=== PATIENT | female | born 1985 | race Caucasian/White ===

== ENCOUNTER 2016-03-25 08:42 | Emergency (ER) | payer BC ==
[2016-03-25 09:03] VITALS: BP 124/83
--- NOTE | 2016-03-25 09:26 | UC ---
Throat Pain/Nasal Alejandro HPI - HPI Summary HPI Summary: 30 yo female with sore throat and bilat otalgia x 2 days now right eye red and matted shut no eye pain no f/c no MTZ no CP or SOB - History of Current Complaint Chief Complaint: UCGeneralIllness Stated Complaint: SORE THROAT,SWOLLEN FACE Time Seen by Provider: 03/25/16 09:12 Hx Obtained From: Patient Hx Last Menstrual Period: 06/07/13 Onset/Duration: Gradual Onset, Lasting Days Severity: Mild Pain Intensity: 4 Pain Scale Used: 0-10 Numeric Related History: Prior ENT Surgery, T & A - Epiglottits Risk Factors Epiglottis Risk Factors: Negative - Allergies/Home Medications Allergies/Adverse Reactions: Allergies Allergy/AdvReac Type Severity Reaction Status Date / Time No Known Allergies Allergy Verified 06/10/13 07:30 Home Medications: Home Medications Bromocriptine TAB* [Parlodel TAB*] 2.5 mg PO DAILY 03/25/16 [History Confirmed 03/25/16] PMH/Surg Hx/FS Hx/Imm Hx Previously Healthy: Yes - Surgical History Surgical History: Yes Surgery Procedure, Year, and Place: T&A, EYE SURGERY FOR BROWN'S SYNDROME, 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 - Family History Known Family History: Positive: Cardiac Disease, Hypertension, Diabetes - Social History Alcohol Use: None Substance Use Type: None Smoking Status (MU): Never Smoked Tobacco Review of Systems Constitutional: Negative Skin: Negative Eyes: Negative ENT: Sore Throat, Ear Ache Respiratory: Negative Cardiovascular: Negative Gastrointestinal: Negative Genitourinary: Negative Motor: Negative Neurovascular: Negative Musculoskeletal: Negative Neurological: Negative Psychological: Negative All Other Systems Reviewed And Are Negative: Yes Physical Exam Triage Information Reviewed: Yes Appearance: Well-Appearing, No Pain Distress, Well-Nourished Vital Signs: Initial Vital Signs Temp 98.1 F 03/25/16 08:50 Pulse 77 03/25/16 08:50 Resp 16 03/25/16 08:50 BP 124/83 03/25/16 08:50 Pulse Ox 100 03/25/16 08:50 Eyes: Positive: Conjunctiva Inflamed, Discharge - right ENT: Positive: Hearing grossly normal, Pharyngeal erythema, TMs normal. Negative: Tonsillar swelling, Tonsillar exudate, Trismus, Muffled/hoarse voice Dental: Negative: Dental Fracture @, Abscess @ Neck: Positive: Supple, Enlarged Nodes @ - tender ant cervical nodes Respiratory: Positive: Lungs clear, Normal breath sounds, No respiratory distress, No accessory muscle use Cardiovascular: Positive: RRR, No Murmur. Negative: Tachycardia, Bradycardia Musculoskeletal: Positive: ROM Intact, No Edema Neurological: Positive: Alert Psychological Exam: Normal Skin Exam: Normal Throat Pain/Nasal Course/Dx - Differential Dx/Diagnosis Provider Diagnoses: pharyngitis. conjunctivitis Discharge - Discharge Plan Condition: Stable Disposition: HOME Prescriptions: Amoxicillin (*) 875 mg PO BID #20 tab Polymyx/Trimethoprim OPTH* [Polytrim OPHTH*] 1 - 2 drop RIGHT EYE QID #1 btl Patient Education Materials: Pharyngitis (ED), Conjunctivitis (ED) Referrals: Ofelia Oconnor MD [Primary Care Provider] - 4 Days (if not better) Additional Instructions: recheck for new or worsening symptoms
== END 2016-03-25 09:29 | disposition home or self-care (01) ==
LOC: UCCORT 08:42
DX: J02.9 Acute pharyngitis, unspecified (principal); H10.31 Unspecified acute conjunctivitis, right eye
CPT/HCPCS: 99212; G0463

== ENCOUNTER 2016-10-03 09:17 | Emergency (ER) | payer BC ==
--- NOTE | 2016-10-03 09:24 | UC ---
Throat Pain/Nasal Alejandro HPI - HPI Summary HPI Summary: 31 year old presents with complains of sore throat/right ear pain/fever/chills. 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 removed-2016 - Family History Known Family History: Positive: Cardiac Disease, Hypertension, Diabetes - Social History Alcohol Use: None Substance Use Type: None Smoking Status (MU): Never Smoked Tobacco Review of Systems Constitutional: Negative Skin: Negative Eyes: Negative ENT: Sore Throat, Ear Ache, Nasal Discharge, Sinus Congestion, Sinus Pain/ Tenderness Respiratory: Negative Cardiovascular: Negative Gastrointestinal: Negative Genitourinary: Negative Motor: Negative Neurovascular: Negative Musculoskeletal: Negative Neurological: Negative Psychological: Negative All Other Systems Reviewed And Are Negative: Yes Physical Exam Triage Information Reviewed: Yes Eye Exam: Normal ENT: Positive: Pharyngeal erythema, Nasal congestion, Nasal drainage Dental Exam: Normal Neck exam: Normal Neck: Positive: 1 Respiratory Exam: Normal Cardiovascular Exam: Normal Abdominal Exam: Normal Musculoskeletal Exam: Normal Neurological Exam: Normal Psychological Exam: Normal Skin Exam: Normal Throat Pain/Nasal Course/Dx - Differential Dx/Diagnosis Provider Diagnoses: sinusitis Discharge - Discharge Plan Condition: Stable Disposition: HOME Prescriptions: Amoxicillin/Clavulanate TAB* [Augmentin TAB 875*] 875 mg PO BID #20 tab Magic M W2 Reed/Maal/Nyst/Lido* 15 ml SWISH SPIT QID #120 ml Methylprednisolone [Medrol Dosepak 4 MG*] 4 mg PO .SEE [place] INSTRUCTION #21 tab Neomyc/Polym/HC 1% OTIC SUSP* [Cortisporin Otic Susp 1%*] 4 drop RIGHT EAR QID # 1 btl Patient Education Materials: Pharyngitis (ED), Earache (ED), Sinusitis (ED) Referrals: No Primary Care Phys,NOPCP [Medical Doctor] -
[2016-10-03 09:56] VITALS: BP 118/76
== END 2016-10-03 10:06 | disposition home or self-care (01) ==
LOC: UCCORT 09:17
DX: J32.9 Chronic sinusitis, unspecified (principal)
CPT/HCPCS: 87651; 99212; G0463

== ENCOUNTER 2018-03-10 13:30 | Emergency (ER) | payer BC ==
--- NOTE | 2018-03-10 13:46 | ED ---
- HPI Summary HPI Summary: A 32 y/o F who is 33 weeks presents to ED with c/o n/v onset 0200. This is her first . Associated sx: abd pain lasting approx 20 minutes described as a "elizabeth horse" in her stomach. Pt denies recent illness. Her water has not broken. - History of Current Complaint Chief Complaint: EDAbdPain Stated Complaint: VOMITING,33 WEEKS PREG Time Seen by Provider: 03/10/18 13:32 Hx Obtained From: Patient Onset/Duration: Started Hours Ago, Atraumatic, Still Present Severity: Moderate Current Severity: Moderate Pain Intensity: 5 Location of Pain: Diffuse Character: Other: - "elizabeth horse" Associated Signs and Symptoms: Positive: Nausea, Vomiting, Other: - abd pain. Negative: Vaginal Bleeding or Discharge - Assessment Hx Now: No - Allergies/Home Medications Allergies/Adverse Reactions: Allergies Allergy/AdvReac Type Severity Reaction Status Date / Time No Known Allergies Allergy Verified 03/10/18 13:55 PMH/Surg Hx/FS Hx/Imm Hx Previously Healthy: Yes Musculoskeletal History: Reports: Hx Back Problems - chronic back pain, Other Musculoskeletal History - chronic neck pain Opthamlomology History: Denies: Hx Legally Blind EENT History: Denies: Hx Deafness Neurological History: Denies: Hx Dementia, Other Neuro Impairments/Disorders - DENIES INJURY - Surgical History Surgery Procedure, Year, and Place: T&A, EYE SURGERY FOR BROWN'S SYNDROME, 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 Negative: discharge - water has not broken All Other Systems Reviewed And Are Negative: Yes Physical Exam - Summary Physical Exam Summary: Appearance: The patient is well-nourished in no acute distress and in no acute pain. Skin: The skin is warm and dry and skin color reflects adequate perfusion. HEENT: The head is normocephalic and atraumatic. The pupils are equal and reactive. The conjunctivae are clear and without drainage. Nares are patent and without drainage. Mouth reveals moist mucous membranes and the throat is without erythema and exudate. The external ears are intact. The ear canals are patent and without drainage. The tympanic membranes are intact. Neck: the neck is supple with full range of motion and non-tender. There are no carotid bruits. There is no neck vein distension. Respiratory: Chest is non-tender. Lungs are clear to auscultation and breath sounds are symmetrical and equal. Cardiovascular: Heart is regular rate and rhythm. There is no murmur or rub auscultated. There is no peripheral edema and pulses are symmetrical and equal. Abdomen: The abdomen is gravid, soft and non-tender. There are normal bowel sounds heard in all four quadrants and there is no organomegaly palpated. Musculoskeletal: There is no back tenderness noted. Extremities are non-tender with full range of motion. There is good capillary refill. There is no peripheral edema or calf tenderness elicited. Neurological: Patient is alert and oriented to person, place and time. The patient has symmetrical motor strength in all four extremities. Cranial nerves are grossly intact. Deep tendon reflexes are symmetrical and equal in all four extremities. Psychiatric: The patient has an appropriate affect and does not exhibit any anxiety or depression. - Physical Exam Triage Information Reviewed: Yes Vital Signs Reviewed: Yes Diagnostics - Vital Signs Vital Signs Temp Pulse Resp BP Pulse Ox 03/10/18 13:36 98.1 F 102 24 143/95 98 - Laboratory Result Diagrams: 03/10/18 14:26 03/10/18 14:26 Lab Statement: Any lab studies that have been ordered have been reviewed, and results considered in the medical decision making process. Re-Evaluation - Re-Evaluation 1 Re-Evaluation Time: 17:38 Change: Improved Comment: Discussing results with pt. Course/Dx - Course Course Of Treatment: Ms. South presented at 33 weeks' having vomited for multiple hours and then developed some epigastric pain which she describes as a charley horse. Her vitals were stable here and she was nontoxic in appearance. Her abdomen was gravid but soft. I will and he came down and put her on a monitor and didn't detect any contractions and had good activity. She was given Zofran and Protonix here in the department and did improve some. She was also given IV fluids. I gave her some sucralfate and recommended she follow up with [facility]. - Diagnoses Provider Diagnoses: GERD (gastroesophageal reflux disease), Vomiting Discharge - Sign-Out/Discharge Documenting (check all that apply): Patient Departure - DC - Discharge Plan Condition: Stable Disposition: HOME Patient Education Materials: Nausea and Vomiting in (ED), Gastroesophageal Reflux Disease (ED) Referrals: Ofelia Oconnor MD [Primary Care Provider] - Additional Instructions: Follow up with your [facility] on 03/12/18. Please return to the ED if you experience new or worsening symptoms. Follow up with your primary care provider in 2-3 days. - Billing Disposition and Condition Condition: STABLE Disposition: Home - Attestation Statements Document Initiated by Shyam: Yes Documenting Scribe: Navin Fish Provider For Whom Shyam is Documenting (Include Credential): Dr. Marko Gonzalez MD Scribe Attestation: INavin scribed for Dr. Marko Gonzalez MD on 03/10/18 at 1817. Scribe Documentation Reviewed: Yes Provider Attestation: The documentation as recorded by the Navin arreola accurately reflects the service I personally performed and the decisions made by me, Dr. Marko Gonzalez MD Status of Scribe Document: Viewed
[2018-03-10] MEDS ORDERED: NS 0.9% 1000 ML* 1,000 ML IV ONE (13:49)
[2018-03-10] MEDS ORDERED: Ondansetron INJ* 2 MG/ML VIAL IV ONE (13:56)
[2018-03-10] MEDS ORDERED: Ondansetron INJ* 2 MG/ML VIAL ONE (13:57)
[2018-03-10 14:36] LABS: ABS Basophils 0.1 10^3/ul (0-0.2); ABS Eosinophils 0.1 10^3/ul (0-0.6); ABS Lymphocytes 1.2 10^3/ul (1.0-4.8); ABS Monocytes 0.5 10^3/ul (0-0.8); ABS Neutrophils 12.2 10^3/ul (1.5-7.7); ABS Nucleated RBC 0 10^3/ul; Eosinophil % 0.4 %; Hematocrit 39 % (35-47); Hemoglobin 12.7 g/dl (12.0-16.0); Lymphocyte % 8.5 %; Mean Corpuscular HGB Conc 32 g/dl (31-36); Mean Corpuscular Hemoglobin 27 pg (27-31); Mean Corpuscular Volume 82 fL (80-97); Mean Platelet Volume 8.8 fL (7.4-10.4); Nucleated Red Blood Cells % 0.1; Platelet Count 205 10^3/ul (150-450); Red Blood Count 4.79 10^6/ul (4.00-5.40); Red Cell Distribution Width 14 % (10.5-15)
[2018-03-10 14:54] LABS: Albumin 3.2 g/dL (3.2-5.2); Albumin/Globulin Ratio 1.2 (1-3); BUN/Creatinine Ratio 12.5 (8-20); Calcium 8.4 mg/dL (8.6-10.3); EGFR Non-African American 127.1 (>60); Globulin 2.6 g/dL (2-4); Potassium 3.9 mmol/L (3.5-5.0); Total Bilirubin 0.5 mg/dL (0.2-1.0); Total Protein 5.8 g/dL (6.4-8.9)
[2018-03-10] MEDS ORDERED: Pantoprazole IV* 40 MG IV ONE (14:54)
[2018-03-10 15:56] LABS: Urine Appearance Cloudy; Urine Bacteria 1+ (Absent); Urine Bilirubin Negative (Negative); Urine Blood Negative (Negative); Urine Color Yellow; Urine Glucose Negative (Negative); Urine Ketones 2+ (Negative); Urine Nitrite Negative (Negative); Urine Protein 1+(30 mg/dL) (Negative); Urine Red Blood Cell 1+(3-5/hpf) (Absent); Urine Specific Gravity 1.024 (1.010-1.030); Urine Urobilinogen Negative (Negative); Urine White Blood Cell 2+(11-20/hpf) (Absent)
[2018-03-10] MEDS ORDERED: Sucralfate TAB* 1 GM PO ONE (17:39)
[2018-03-10 18:11] VITALS: BP 125/88
== END 2018-03-10 18:12 | disposition home or self-care (01) ==
LOC: ED 13:30
DX: O21.9 Vomiting of pregnancy, unspecified (principal); K21.9 Gastro-esophageal reflux disease without esophagitis; Z3A.33 33 weeks gestation of pregnancy; R10.9 Unspecified abdominal pain
CPT/HCPCS: 36415; 80053; 81003; 81015; 83605; 85025; 87086; 96361; 96374; 96375; 96376; 99282; A9270-GY; J2405

== ENCOUNTER 2018-04-26 21:33 | Inpatient (IN) | payer BC ==
[2018-04-26] MEDS ORDERED: Lactated Ringers 1000 ML Bag* 1,000 ML IV ONE (22:05)
[2018-04-26] MEDS ORDERED: Buffered Lidocaine 1% SYRIN* 1 ML/SYRINGE INTRADERM ONE (22:05)
--- NOTE | 2018-04-26 22:25 | HP ---
General Information - Reason for Visit SROM, labor - General Information Maternal Age: 32 Grav: 1 Para: 0 SAB: 0 IEA: 0 Estimated Due Date: 04/25/18 Determined By: LMP Gestational Age in Weeks/Days: 40w 1 d Maternal Blood Type and Rh: O Positive - Results this Serology/RPR Result: Non-Reactive Rubella Result: Immune HBsAg Result: Negative HIV Result: Negative GBS Culture Result: Positive Past Medical History Past Medical History Comment: Pituitary prolactinoma Migraine Past Surgical History Comment: prolactinoma removal 07/2015 Tonsillectomy/adenoidectomy Pertinent Family History: See Records - Antepartal Records Antepartal Records: Reviewed, Uncomplicated Review of Systems Constitutional: Comfortable CV Complaint: No Respiratory: Shortness of Breath: No Gastrointestinal: Nausea, Soft Stool Genitourinary: Leaking Fluid Musculoskeletal: Back Pain Neurological: No Headache, No Visual Changes Movement: Normal Exam Allergies/Adverse Reactions: Allergies No Known Allergies Allergy (Verified 04/24/18 11:27) - Measurements Height: 5 ft 4 in Weight: 228 lb Weight in lbs: 228.301799 Body Mass Index (BMI): 39.1 Pre- Weight: 205 lb Weight Gained This : 23 lbs and 0 ozs - Exam Breast: - - soft, no masses Extremities: No Edema Heart: Normal Rhythm/Heart Sounds HEENT: No Significant Findings Lungs: Clear Bilaterally Reflexes: DTR 2+ Thyroid: No Thyromegaly - Ultrasound/Biophysical Profile Ultrasound Status: Not Done Targeted Exam Findings Estimated Weight: 9.5 lbs Cervical Exam: 4cm Effacement: 80% Presenting Part: Vertex Membrane Status: AROM - 2nd layer at 2215--mec stained Amniotic Fluid Evaluation: Gross Rupture EFM Findings - External Monitor Findings Baseline Heart Rate: 130 External Monitor Findings: Accelerations Present, No Pattern of Variable or Late Decelerations, Variability Moderate, Baseline Stable External Monitor Findings Comment: category 1 Contractions: Irregular, Mild, 45-90 Seconds Contraction Frequency: every 3-6 min Assessment/Plan - Assessment Primip at 40 wks 1 day, early labor, SROM - Obstetrical Risk Factors Obstetrical Risk Factors: GBS Positive - Plan Plan: Admit - Anticipate Vaginal Delivery - Date/Time of Admission Date of Admission: 04/26/18 Time of Admission: 22:15
[2018-04-26] MEDS ORDERED: Penicillin G Potassium IV* 5,000,000 UNITS in NS 0.9% 100 ML* 100 ML IVPB ONE (22:30)
[2018-04-26] MEDS ORDERED: Lactated Ringers 1000 ML Bag* 1,000 ML IV SCH (23:00)
[2018-04-26 23:13] LABS: ABS Basophils 0.1 10^3/ul (0-0.2); ABS Eosinophils 0.1 10^3/ul (0-0.6); ABS Lymphocytes 3.8 10^3/ul (1.0-4.8); ABS Monocytes 0.9 10^3/ul (0-0.8); ABS Neutrophils 9.8 10^3/ul (1.5-7.7); ABS Nucleated RBC 0 10^3/ul; Eosinophil % 0.9 %; Hematocrit 43 % (35-47); Mean Corpuscular HGB Conc 32 g/dl (31-36); Mean Corpuscular Hemoglobin 26 pg (27-31); Mean Corpuscular Volume 79 fL (80-97); Mean Platelet Volume 8.9 fL (7.4-10.4); Nucleated Red Blood Cells % 0; Platelet Count 256 10^3/ul (150-450); Red Blood Count 5.45 10^6/ul (4.00-5.40); Red Cell Distribution Width 15 % (10.5-15); White Blood Count 14.7 10^3/ul (3.5-10.8)
[2018-04-26] MEDS ORDERED: fentaNYL* 50 MCG/ML 2 ML VIAL (100 MCG VIAL) ONE (23:41)
[2018-04-26] MEDS ORDERED: Bupivacaine 0.25% SDV PF* 10 ML VIAL INJ ONE (23:41)
--- NOTE | 2018-04-26 23:42 | PN ---
Progress Note - Progress Note Date of Service: 04/26/18 Note: pt wildly uncomfortable, out of control, poor pain tolerance Cervix: 5 cm/90% Will get epidural
[2018-04-26] MEDS ORDERED: OBEPIDURAL* 250 ML EPIDURAL ONE (23:44)
[2018-04-27] MEDS ORDERED: Phenylephrine IV* 40 MCG/ML 10 ML SYRINGE IV PUSH PRN ×2 (00:55)
[2018-04-27] MEDS ORDERED: Famotidine TAB* 20 MG PO PRN (00:55)
[2018-04-27] MEDS ORDERED: EPHEDrine (Pressors)* 50 MG/ML VIAL IV PUSH PRN ×2 (00:55)
[2018-04-27] MEDS ORDERED: Lactated Ringers 1000 ML Bag* 500 ML IV PRN ×2 (00:55)
[2018-04-27] MEDS ORDERED: Hetastarch 6% in NS* 200 ML IV PRN (00:55)
[2018-04-27] MEDS ORDERED: Sodium Citrate/Citric Acid* 15 ML UDC PO PRN (00:55)
[2018-04-27] MEDS ORDERED: Lactated Ringers 1000 ML Bag* 1,000 ML IV ONE (00:55)
[2018-04-27] MEDS ORDERED: Lactated Ringers 1000 ML Bag* 1,000 ML IV SCH ×3 (01:00→12:00)
[2018-04-27] MEDS ORDERED: OBEPIDURAL* 250 ML EPIDURAL SCH (01:00)
--- NOTE | 2018-04-27 01:11 | PN ---
Progress Note - Progress Note Date of Service: 04/27/18 Note: starting to get more comfortable but still with poor tolerance Will order lidocaine jelly for uretheral discomfort from catheter Feeling pressure Cervix: 6 cm/80%, vtx -2
[2018-04-27] MEDS ORDERED: Lidocaine 2% JELLY* 6 ML JELLY TOPICAL ONE (01:12)
[2018-04-27] MEDS ORDERED: Midazolam* 1 MG/ML 2 ML VIAL (2 MG) ONE (02:16)
[2018-04-27] MEDS ORDERED: fentaNYL* 50 MCG/ML 2 ML VIAL (100 MCG VIAL) ONE (02:16)
[2018-04-27] MEDS ORDERED: ceFOXitin 2 GM IVPREMIX* 2 GM/50 ML BAG ONE (02:17)
[2018-04-27] MEDS ORDERED: Famotidine IV* 10 MG/ML 2 ML (20 mg) ONE (02:23)
[2018-04-27] MEDS ORDERED: OXYTOCIN* 10 UNITS/ML 1 ML VIAL ONE (02:23)
[2018-04-27] MEDS ORDERED: Succinylcholine* 20 MG/ML 10 ML VIAL ONE (02:23)
[2018-04-27] MEDS ORDERED: Lidocaine 2% PF * 5 ML VIAL ONE (02:23)
[2018-04-27] MEDS ORDERED: Propofol* 10 MG/ML 20 ML BTL ONE (02:23)
[2018-04-27] MEDS ORDERED: Ondansetron INJ* 2 MG/ML VIAL ONE (02:54)
[2018-04-27] MEDS ORDERED: Naloxone* 0.4 MG/ML 1 ML VIAL IV PRN ×2 (02:55→03:00)
[2018-04-27] MEDS ORDERED: fentaNYL* 50 MCG/ML 2 ML VIAL (100 MCG VIAL) IV PRN (02:55)
[2018-04-27] MEDS ORDERED: Morphine PF AMP (0.5MG/ML)* 5 MG/10 ML AMP ONE (02:57)
[2018-04-27] MEDS ORDERED: DiMENhydriNATE IV* 50 MG/ML VIAL IV PUSH PRN (03:00)
[2018-04-27] MEDS ORDERED: PROCHLORPERAZINE INJ 5 MG/ML 2 ML VIAL IV PRN (03:00)
[2018-04-27] MEDS ORDERED: HYDROcodone/ACETAMIN 5-325 MG* 1 TAB PO PRN ×2 (03:00)
[2018-04-27] MEDS ORDERED: diPHENhydraMINE IV* 50 MG/ML 1 ml VIAL (BENADRYL) IV PRN (03:00)
[2018-04-27] MEDS ORDERED: Ondansetron INJ* 2 MG/ML VIAL IV PRN (03:00)
[2018-04-27] MEDS ORDERED: Nalbuphine* 10 MG/ML 1 ML VIAL IV PRN (03:00)
[2018-04-27] MEDS ORDERED: Ketorolac INJ* 30 MG/ML 1 ML VIAL ONE (03:06)
[2018-04-27] MEDS ORDERED: Witch Hazel PAD* JAR TOPICAL PRN (03:46)
[2018-04-27] MEDS ORDERED: Glycerin ADULT SUPP PR PRN (03:46)
[2018-04-27] MEDS ORDERED: Dibucaine 1% 28.35 GM TUBE PR PRN (03:46)
[2018-04-27] MEDS ORDERED: Oxytocin in LR* 20 UNITS/1,000 ML BAG IVPB SCH (04:00)
[2018-04-27] MEDS ORDERED: Lidocaine 1%* 5 ML VIAL ONE (05:54)
[2018-04-27] MEDS: Ketorolac INJ* 30 MG/ML 1 ML VIAL IV PRN ×3 (09:29→23:48)
--- NOTE | 2018-04-27 09:57 | OP ---
DATE OF OPERATION: 04/27/18 - ROOM #103 DATE OF : 89 SURGEON: Amber Patino MD. MANAGER SEARCH: Gisela Still CNM. ANESTHESIOLOGIST: Dr. Gill. ANESTHESIA: General. PRE-OP DIAGNOSES: Intrauterine , 40-2/7 weeks, bradycardia remote from delivery. POST-OP DIAGNOSES: OPERATIVE PROCEDURE: Primary low-transverse section. ESTIMATED BLOOD LOSS: 700 cc. URINE OUTPUT: 300 cc of concentrated yellow urine. IV FLUIDS: 2000 cc of crystalloid. FINDINGS: Revealed a vertex male with Apgars 9 at one minute and 9 at five minutes. Weight, 8 pounds 6 ounces. Cord tightly wrapped around leg x2. Normal-appearing tubes and ovaries bilaterally. Normal appearing placenta, three-vessel cord, manually extracted and intact. Normal uterine cavity without retained membranes or placental tissue. COMPLICATIONS: None apparent. DISPOSITION: Stable to recovery room. DESCRIPTION OF PROCEDURE: The patient was placed in dorsal lithotomy position and the abdomen was prepped and draped prior to undergoing general endotracheal anesthesia. After prepping and draping, the patient was identified with universal protocol. The general endotracheal anesthesia was then carried out. An incision was made in the skin 2 fingerbreadths above the pubic symphysis. This was carried down through to the fascia. Fascia was scored in the midline, extended laterally and superiorly using Angeles scissors and superiorly and inferiorly with blunt and sharp dissection. The peritoneum was then entered bluntly. Bladder blade was inserted. Lower uterine segment was identified and tented up with an Allis. Incision was made with scalpel. This was extended bluntly. Meconium staining was noted on the baby. The baby was delivered LOT, anterior, posterior shoulder delivered. Tight nuchal cord was noted around the leg with delivery of the baby. The cord was clamped and cut and the was handed off to the awaiting bankruptcy manager. Appropriate cord blood was obtained. The placenta was then manually extracted and noted to be intact three-vessel cord. There was an extension noted in the lower uterine segment to the left. This was clamped with broad Allis as the uterine cavity was explored free of any membranes or placental tissue. The incision was then reapproximated, the first layer with 0 Vicryl running locked, the second layer with 0 Vicryl running imbricated. There was a small area on the left lateral extension of the venous oozing. This was clamped with right angles and suture ligated using a 2-0 Vicryl in a Flako'd fashion. Tubes and ovaries were palpated and looked at and noted to have a normal appearance. The uterus was returned intraabdominally. Colic gutters were lavaged. The hysterotomy site and extension were noted to be hemostatic. The peritoneum was then clamped with Kacie's and the peritoneum was then reapproximated using 3-0 Vicryl in a running fashion. Subfascial area lavaged. Hemostasis was assured and the fascia itself was reapproximated using 0 Vicryl x2 in a running fashion. Subcu was lavaged and reapproximated using 2-0 Vicryl in an interrupted fashion. The skin was then reapproximated using 4-0 Monocryl in a subcuticular fashion. Mastisol and Steri-Strips were applied. All sponge, instrument, and blade counts were correct throughout the case. The patient tolerated the procedure well. Because the initial count could not be done because of the crash nature of the C- section AP and lateral flap plate was obtained of the abdomen confirming no evidence of instruments or sponges in the abdominal cavity. The patient was then extubated and taken to recovery room in stable condition. [id number]/[facility] #: [id number] KARUNA
[2018-04-27] MEDS: Simethicone TAB* 80 MG TAB.CHEW PO SCH ×4 (11:00→21:06)
[2018-04-27] MEDS: Docusate CAP* 100 MG PO SCH (14:04)
[2018-04-27] MEDS: Acetaminophen TAB* 325 MG PO SCH ×3 (14:37→15:28)
[2018-04-27] MEDS ORDERED: oxyCODONE/Acetamin 5/325 MG* TAB PO PRN (18:59)
[2018-04-27] MEDS: Acetaminophen TAB* 325 MG PO PRN (21:06)
[2018-04-28] MEDS: Docusate CAP* 100 MG PO SCH ×4 (07:25→21:49)
[2018-04-28] MEDS: Acetaminophen TAB* 325 MG PO SCH (07:26)
[2018-04-28] MEDS: Penicillin G Potassium IV* 2,500,000 UNITS in NS 0.9% 100 ML* 100 ML IVPB SCH ×3 (07:26→07:29)
[2018-04-28] MEDS: Ibuprofen TAB* 600 MG PO PRN ×3 (07:41→19:58)
[2018-04-28] MEDS: Acetaminophen TAB* 325 MG PO PRN (07:41)
[2018-04-28 07:43] LABS: ABS Basophils 0.1 10^3/ul (0-0.2); ABS Eosinophils 0.1 10^3/ul (0-0.6); ABS Lymphocytes 2.9 10^3/ul (1.0-4.8); ABS Monocytes 0.7 10^3/ul (0-0.8); ABS Nucleated RBC 0 10^3/ul; Eosinophil % 0.6 %; Hematocrit 30 % (35-47); Lymphocyte % 20.7 %; Mean Corpuscular HGB Conc 33 g/dl (31-36); Mean Corpuscular Hemoglobin 26 pg (27-31); Mean Corpuscular Volume 79 fL (80-97); Mean Platelet Volume 8.6 fL (7.4-10.4); Nucleated Red Blood Cells % 0; Platelet Count 254 10^3/ul (150-450); Red Blood Count 3.79 10^6/ul (4.00-5.40); Red Cell Distribution Width 15 % (10.5-15); White Blood Count 13.8 10^3/ul (3.5-10.8)
[2018-04-28] MEDS ORDERED: Ferrous Gluconate TAB* 324 MG TAB PO SCH (09:00)
[2018-04-28] MEDS: Simethicone TAB* 80 MG TAB.CHEW PO SCH ×4 (10:17→21:55)
[2018-04-28] MEDS ORDERED: Tetan/Diph/Pertus SYR(Tdap)* 0.5 ML SYR(BOOSTRIX) use SYR IM ONE (12:14)
[2018-04-28] MEDS: oxyCODONE/Acetamin 5/325 MG* TAB PO PRN ×3 (12:54→21:50)
[2018-04-29] MEDS: Ibuprofen TAB* 600 MG PO PRN ×4 (02:57→21:30)
[2018-04-29] MEDS: oxyCODONE/Acetamin 5/325 MG* TAB PO PRN ×3 (02:58→21:30)
[2018-04-29] MEDS: Simethicone TAB* 80 MG TAB.CHEW PO SCH ×4 (08:58→21:17)
[2018-04-29] MEDS: Docusate CAP* 100 MG PO SCH ×3 (08:58→21:01)
[2018-04-30] MEDS: Ibuprofen TAB* 600 MG PO PRN ×2 (04:29→10:34)
[2018-04-30 08:24] VITALS: BP 129/84
[2018-04-30] MEDS: Simethicone TAB* 80 MG TAB.CHEW PO SCH (08:31)
[2018-04-30] MEDS: Docusate CAP* 100 MG PO SCH (08:31)
== END 2018-04-30 11:03 | disposition home or self-care (01) | DRG 540 ==
LOC: MCHOBOUT 21:33 → MCHOB 22:08
PROVIDERS: ADMIT Midwife; ATTEND Obstetrics & Gynecology
PROC: 10907ZC Drainage of Amniotic Fluid, Therapeutic from Products of Conception, Via Natural or Artificial Opening (ICD-10-PCS; 2018-04-27)
PROC: 10D00Z1 Extraction of Products of Conception, Low, Open Approach (ICD-10-PCS; principal; 2018-04-27 02:06)
DX: O76 Abnormality in fetal heart rate and rhythm complicating labor and delivery (principal); O48.0 Post-term pregnancy; Z3A.40 40 weeks gestation of pregnancy; O99.824 Streptococcus B carrier state complicating childbirth; O69.89X0 Labor and delivery complicated by other cord complications, not applicable or unspecified; O77.0 Labor and delivery complicated by meconium in amniotic fluid; Z37.0 Single live birth
CPT/HCPCS: 36415; 74019; 85025; 86850; 86900; 86901; A9270-GY; J0330; J0694; J1885; J2250; J2405; J2540; J2590; J2704; J3010; J3490

== ENCOUNTER 2019-05-27 15:16 | Emergency (ER) | payer BC, OTHER ==
--- NOTE | 2019-05-27 16:19 | UC ---
Throat Pain/Nasal Alejandro HPI - HPI Summary HPI Summary: 33-year-old female with cough and cold symptoms over the past 5 days with sinus pressure today, postnasal drainage and states "my teeth hurt". She is not asthmatic however she has had a frequent cough with wheezing over the past 24 hours. - History of Current Complaint Stated Complaint: SINUS COMPLAINT Time Seen by Provider: 05/27/19 16:14 Hx Obtained From: Patient Hx Last Menstrual Period: 06/07/13 ?: No Onset/Duration: Gradual Onset, Lasting Days Severity: Mild Cough: Nonproductive Associated Signs & Symptoms: Positive: Wheezing, Sinus Discomfort, Nasal Discharge - Allergies/Home Medications Allergies/Adverse Reactions: Allergies Allergy/AdvReac Type Severity Reaction Status Date / Time No Known Allergies Allergy Verified 05/27/19 16:25 Home Medications: Home Medications DOXYcycline CAP(*) [DOXYcycline 100MG CAP(*)] 100 mg PO BID 10 Days #20 cap [Rx] Guaifen/Phenyleph/Acetaminophn [Tylenol Sinus Severe Caplet] 1 dose PO ONCE [History Confirmed 05/27/19] guaiFENesin [Mucinex] 1 dose PO ONCE 05/27/19 [History Confirmed 05/27/19] predniSONE 10 mg TAB [Deltasone 10 MG TAB*] 10 mg PO DAILY 12 Days #30 tab 05/26 [Rx] PMH/Surg Hx/FS Hx/Imm Hx Previously Healthy: Yes - Surgical History Surgical History: Yes Surgery Procedure, Year, and Place: T&A, EYE SURGERY FOR BROWN'S SYNDROME, 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 Is Patient Immunocompromised?: No Physical Exam Triage Information Reviewed: Yes Appearance: Well-Appearing, No Pain Distress, Well-Nourished Vital Signs Reviewed: Yes Eyes: Positive: Conjunctiva Clear ENT: Positive: Pharynx normal - Purulent yellow postnasal drainage., Nasal congestion, Nasal drainage, TMs normal, Sinus tenderness - Tender over the maxillary sinuses bilaterally., Uvula midline Neck: Positive: Supple, Nontender, No Lymphadenopathy Respiratory: Positive: No respiratory distress, No accessory muscle use, Rhonchi , Wheezing - Scattered rhonchi and wheezing with forced expiration. Cardiovascular: Positive: RRR, No Murmur, Pulses Normal, Brisk Capillary Refill Musculoskeletal Exam: Normal Neurological Exam: Normal Psychological Exam: Normal Skin Exam: Normal Throat Pain/Nasal Course/Dx - Course Course Of Treatment: Patient is comfortable here in no distress. - Differential Dx/Diagnosis Provider Diagnosis: Bronchitis, Sinusitis Discharge ED - Sign-Out/Discharge Documenting (check all that apply): Patient Departure All imaging exams completed and their final reports reviewed: No Studies - Discharge Plan Condition: Good Disposition: HOME Prescriptions: DOXYcycline CAP(*) [DOXYcycline 100MG CAP(*)] 100 mg PO BID 10 Days #20 cap predniSONE 10 mg TAB [Deltasone 10 MG TAB*] 10 mg PO DAILY 12 Days #30 tab Patient Education Materials: Sinusitis (ED), Acute Bronchitis (ED) Referrals: [facility] [Outside] No Primary Care Phys,NOPCP [Primary Care Provider] - Additional Instructions: No dairy products, antacids or multivitamins 2 hours before you take the doxycycline and 2 hours after however take it with food. Take the prednisone with food. Definite follow-up with [facility] or your primary care provider if no improvement in 3 or 4 days. - Billing Disposition and Condition Condition: GOOD Disposition: Home - Attestation Statements Provider Attestation: I was available for consultation for this patient. I did not evaluate the patient or participate in any medical decision making or disposition decisions unless I am specifically named in the chart as having consulted on the patient. If I have consulted on the patient, please see my own ED note on the patient encounter. Wendy Florez MD
[2019-05-27 16:29] VITALS: BP 124/80
== END 2019-05-27 16:36 | disposition home or self-care (01) ==
LOC: UCCORT 15:16
DX: J40 Bronchitis, not specified as acute or chronic (principal); J32.9 Chronic sinusitis, unspecified
CPT/HCPCS: 99212; G0463